=== PATIENT | female | born 1995 | race African-American/Black ===

== ENCOUNTER 2018-11-04 22:34 | Emergency (ER) | payer MEDICARE ==
[~2018-11-04] VITALS: Ht 162.6 cm; Wt 72.7 kg
[2018-11-04 22:39] VITALS: BP 110/73; Ht 162.6 cm; Wt 72.7 kg
[2018-11-04] MEDS ORDERED: VOLTAREN75 MG PO (23:11)
[2018-11-04] MEDS ORDERED: VIBRAMYCIN 100100 MG PO (23:11)
== END 2018-11-04 23:29 | disposition home or self-care (01) ==
LOC: D.ER 22:34
DX: L03.211 Cellulitis of face (principal)